=== PATIENT | male | born 1960 | race Caucasian/White ===

== ENCOUNTER → 2018-01-27 | Day surgery (SDC) | payer BC ==
[~2018-01-27] MED LIST: ATORVASTATIN CA10 MG PO; BUPIVACAINE 0.5%/EPI 30 ML SDV INJ ONE; CEFAZOLIN SOD 2 GM/D5W 50ML 50 ML IV ONE; CRESTOR20 MG PO; DEXAMETHASONE SOD PHOS INJ 4 MG/ML VIAL ONE; DIOVAN HCT 80-1 EACH; FENTANYL CITRATE/PF 100MCG/2 ML INJ ONE; IBUPROFEN200 MG PO; KETOROLAC TROMETHAMINE 30 MG/ML VIAL ONE; LIDOCAINE HCL 2% LOCAL INJ 5 ML SDV VIAL INJ ONE; METOPROLOL TART25 MG PO; MIDAZOLAM HCL 2 MG/2 ML VIAL ONE; ONDANSETRON HCL INJ 2 MG/ML VIAL ONE; PANTOPRAZOLE SO40 MG PO; PROPOFOL IV EMULSION 10 MG/ML 20 ML VIAL ONE; SEVOFLURANE INHAL SOLN 250 ML PEN BTL ONE; TYLENOL # 31 EA PO
--- NOTE | 2018-01-28 15:01 | Operative Report ---
DATE OF PROCEDURE: January 27, 2018 PREOPERATIVE DIAGNOSES 1. Right knee medial meniscus tear. 2. Right knee degenerative joint disease of the knee. POSTOPERATIVE DIAGNOSES 1. Right knee medial meniscus tear. 2. Right knee degenerative joint disease of the knee. OPERATIONS/PROCEDURES PERFORMED 1. The patient underwent a right knee examination under anesthesia. 2. Right knee arthroscopy. 3. Right knee partial medial meniscectomy. 4. Right knee chondroplasty of the patella, trochlea, medial femoral condyle, medial tibial plateau, lateral femoral condyle, and lateral tibial plateau. TAX PROCESSOR: None. ANESTHESIA: General endotracheal intubation anesthesia. IV FLUIDS: Per anesthesia record. BRIEF DESCRIPTION OF THE PATIENT'S OPERATIVE PROCEDURE: Mr. Alejandre was taken to the operating room and placed in the supine position on the operating table. Following induction general anesthesia, as well as endotracheal intubation, the patient's right lower extremity was examined under anesthesia. He was found to have a mild effusion within the knee joint. His ligaments were stable. The patient's right lower extremity was prepped and draped in the standard surgical fashion. A 2-portal technique was used to provide this patient arthroscopic evaluation of the knee joint. Examination of the suprapatellar pouch, medial and lateral gutters found no evidence of loose bodies. There was, however, evidence of chondromalacia of the patellar and trochlear surfaces. Scope was advanced in the medial compartment. Examination of the medial compartment demonstrated a torn medial meniscus. There was also chondromalacia of the articulating surfaces. A combination of biting forceps and motorized shaver were used to resect the torn portion of the meniscus. Chondroplasties of the medial femoral condyle and medial tibial plateau were performed at this time. Scope was advanced to the intercondylar notch. The anterior cruciate ligament was identified and found to be intact. Scope was advanced to the lateral compartment. Examination of the lateral compartment demonstrated no meniscal injury. There was chondromalacia of the articulating surfaces. Chondroplasties of the lateral femoral condyle and lateral tibial plateau were performed at this time. Scope was then placed in the suprapatellar pouch, and chondroplasty of patella and trochlea was performed. The knee was deflated of its sterile normal saline. Each of the portal sites were closed using 4-0 nylon suture. Portal sites as well as the knee itself was injected with 0.5% Marcaine with epinephrine. Sterile dressings were applied. The patient was then awakened and taken to the postanesthesia care in stable condition. Job#: [id number] RI
== END | disposition home or self-care (01) ==
LOC: OR 09:32
PROVIDERS: ATTEND Specialist
DX: S83.221A Peripheral tear of medial meniscus, current injury, right knee, initial encounter (principal); M17.11 Unilateral primary osteoarthritis, right knee; M22.41 Chondromalacia patellae, right knee; I10 Essential (primary) hypertension; E78.5 Hyperlipidemia, unspecified; G47.33 Obstructive sleep apnea (adult) (pediatric); X58.XXXA Exposure to other specified factors, initial encounter; Z01.810 Encounter for preprocedural cardiovascular examination; Z68.30 Body mass index [BMI] 30.0-30.9, adult; Z87.891 Personal history of nicotine dependence
CPT/HCPCS: 29881; 93005; J1100; J1885; J2001; J2250; J2405

== ENCOUNTER 2018-01-29 22:19 | Observation (INO) | payer BC ==
[~2018-01-29] VITALS: Ht 172.7 cm; Wt 86.2 kg
[~2018-01-29 22:19] MED LIST changes: -BUPIVACAINE 0.5%/EPI 30 ML SDV INJ ONE; -CEFAZOLIN SOD 2 GM/D5W 50ML 50 ML IV ONE; -CRESTOR20 MG PO; -DEXAMETHASONE SOD PHOS INJ 4 MG/ML VIAL ONE; -DIOVAN HCT 80-1 EACH; -FENTANYL CITRATE/PF 100MCG/2 ML INJ ONE; -KETOROLAC TROMETHAMINE 30 MG/ML VIAL ONE; -LIDOCAINE HCL 2% LOCAL INJ 5 ML SDV VIAL INJ ONE; -METOPROLOL TART25 MG PO; -MIDAZOLAM HCL 2 MG/2 ML VIAL ONE; -ONDANSETRON HCL INJ 2 MG/ML VIAL ONE; -PANTOPRAZOLE SO40 MG PO; -PROPOFOL IV EMULSION 10 MG/ML 20 ML VIAL ONE; -SEVOFLURANE INHAL SOLN 250 ML PEN BTL ONE; -TYLENOL # 31 EA PO
[2018-01-29] MEDS ORDERED: PANTOPRAZOLE 40 MG 10ML VIAL IV STA (22:25)
[2018-01-29] MEDS ORDERED: MORPHINE SULFATE 2 MG/ML SYR IV STA (22:25)
[2018-01-29] MEDS ORDERED: ONDANSETRON HCL INJ 2 MG/ML VIAL IV STA (22:25)
[2018-01-29] MEDS ORDERED: SODIUM CHLORIDE 0.9% 1000ML 1,000 ML IV STA (22:25)
[2018-01-29] MEDS ORDERED: NITROGLYCERIN 2% OINT 1 GM PKT TOP ONE (22:30)
[2018-01-29] MEDS ORDERED: ASPIRIN 81 MG CHEW TAB PO ONE (22:45)
[2018-01-29 22:48] LABS: BASOPHILS # (AUTO) 0.1 (0.0-0.1); BASOPHILS % 0.6 % (0.0-1.0); EOSINOPHILS # (AUTO) 0.2 (0.0-0.4); EOSINOPHILS % 1.7 % (0.0-6.0); HEMOGLOBIN 13.9 g/dL (14.0-18.0); LYMPHOCYTES # (AUTO) 3.3 (1.0-3.2); MEAN CORPUSCULAR HEMOGLOBIN 30.8 pg (28-32); MEAN CORPUSCULAR HGB CONC 34.8 g/dL (31-35); MEAN CORPUSCULAR VOLUME 88.5 fL (81-99); MONOCYTES # (AUTO) 1.1 (0.2-0.8); MONOCYTES % 9.8 % (4.4-11.3); NEUTROPHILS # (AUTO) 6.3 (2.1-6.9); NEUTROPHILS % 57.5 % (38.7-80.0); PLATELET COUNT 255 x10e3/uL (140-360); RED BLOOD COUNT 4.52 x10e6/uL (4.3-5.7)
[2018-01-29] MEDS ORDERED: CRESTOR20 MG PO (22:53)
[2018-01-29] MEDS ORDERED: TYLENOL # 31 EA PO (22:53)
[2018-01-29 22:56] LABS: INR 0.98; PARTIAL THROMBOPLASTIN TIME 24.6 seconds (23.8-35.5); PROTHROMBIN TIME 12.2 seconds (11.9-14.5)
[2018-01-29 23:07] LABS: ALANINE AMINOTRANSFERASE 30 IU/L (0-55); ALBUMIN/GLOBULIN RATIO 1.1 (0.8-2.0); ALKALINE PHOSPHATASE 60 IU/L (40-150); ANION GAP 14.7 mmol/L (8-16); BLOOD UREA NITROGEN 17 mg/dL (7-26); BUN/CREATININE RATIO 19 (6-25); CALCIUM 9.4 mg/dL (8.4-10.2); CARBON DIOXIDE 23 mmol/L (22-29); CHLORIDE 103 mmol/L (98-107); CREATINE KINASE 50 IU/L (30-200); CREATININE, SERUM 0.89 mg/dL (0.72-1.25); EST GLOMERULAR FILTRATION RATE > 60 ML/MIN (60-); GLUCOSE 107 mg/dL (74-118); LIPASE 32 U/L (8-78); MAGNESIUM 2.1 MG/DL (1.3-2.1); POTASSIUM 3.7 mmol/L (3.5-5.1); SODIUM 137 mmol/L (136-145)
[2018-01-29] MEDS ORDERED: SODIUM CHLORIDE 0.9% 50ML 50 ML ONE (23:22)
[2018-01-29] MEDS ORDERED: IOPAMIDOL 370 MG/ML 200 ML INFUS..BTL INJ ONE (23:22)
--- NOTE | 2018-01-29 23:26 | Diagnostic Imaging Report ---
ABDOMEN COMP INCL UPR or DECUB, CHEST 2 VIEWS Clinical history: Chest pain, shortness of breath Technique: 2 views of the chest, AP view abdomen upright and supine Comparison: None Findings: Abdomen: No dilated loops. Mild stool is seen throughout the colon. No free air. Chest: Unremarkable appearance of the heart, mediastinum, lungs and pleural spaces. Impression: No acute thoracic abnormality. Nonobstructive bowel gas pattern. Signed by: Dr Kim Oconnor MD on 01/29/2018 11:23 PM
[2018-01-29 23:34] LABS: BILIRUBIN,URINE NEGATIVE (NEGATIVE); CLARITY,URINE CLEAR (CLEAR); COLOR,URINE YELLOW (YELLOW); KETONES,URINE NEGATIVE (NEGATIVE); LEUKOCYTE ESTERASE ,URINE NEGATIVE (NEGATIVE); NITRITE,URINE NEGATIVE (NEGATIVE); PROTEIN,URINE DIPSTICK NEGATIVE (NEGATIVE); URINE UROBILINOGEN 0.2 mg/dL (0.2 - 1)
[2018-01-29 23:36] LABS: EPITHELIAL CELLS,URINE FEW /LPF; RBC,URINE 0-5 /HPF (0-5); WBC,URINE (MAN) 0-5 /HPF (0-5)
[2018-01-29] MEDS ORDERED: LABETALOL HCL 5 MG/ML 20ML VIAL IV STA (23:56)
[2018-01-30] VITALS (10 sets, daily range): BP systolic 131–198; BP diastolic 75–103
[2018-01-30] MEDS ORDERED: HYDRALAZINE HCL 20 MG/ML VIAL IV STA (00:05)
[2018-01-30] MEDS ORDERED: ENALAPRILAT IV INJ 1.25 MG/ML VIAL IV STA (00:15)
--- NOTE | 2018-01-30 00:15 | Diagnostic Imaging Report ---
EXAM: CT CHEST W DATE: 01/29/2018 11:13 PM INDICATION: Chest pain, concern for pulmonary embolism COMPARISON: None TECHNIQUE: Multidetector CT scanning of the chest was performed. Coronal and sagittal multiplanar reformations were obtained. IV Contrast: 100 ml Isovue 370/300 FINDINGS: LUNGS AND PLEURA: Mild bibasilar atelectasis. Nonspecific 8 x 4 x 5 mm right lower lobe nodule image 68 and 4-5 mm left lower lobe nodule on image 76. No consolidations or edema. No effusions or pneumothorax. HEART, MEDIASTINUM, VESSELS: No evidence of acute pulmonary artery embolism. Main pulmonary artery is normal in caliber, 2.5 cm. Normal heart size. No pericardial effusion. No adenopathy. UPPER ABDOMEN: Unremarkable. MUSCULOSKELETAL: No acute findings. IMPRESSION: 1. No acute pulmonary embolism. 2. Nonspecific pulmonary nodules, largest 3 mm. Recommend 6 month follow-up CT to document stability. Signed by: Dr Kim Oconnor MD on 01/30/2018 12:11 AM
[2018-01-30] MEDS: FAMOTIDINE 20 MG/2 ML VIAL IV SCH ×2 (01:23→13:35)
[2018-01-30] MEDS: METOPROLOL TARTRATE 25 MG TAB PO SCH ×3 (01:23→23:50)
[2018-01-30] MEDS: ONDANSETRON HCL INJ 2 MG/ML VIAL IV PRN ×2 (03:25→10:53)
[2018-01-30] MEDS: MORPHINE SULFATE 2 MG/ML SYR IV PRN ×2 (03:26→10:53)
[2018-01-30] MEDS: NITROGLYCERIN 2% OINT 1 GM PKT TOP SCH ×4 (06:00→23:35)
[2018-01-30 06:17] LABS: CREATINE KINASE 42 IU/L (30-200)
[2018-01-30] MEDS: ASPIRIN 81 MG ENTERIC COATED PO SCH (08:44)
[2018-01-30] MEDS ORDERED: MAGNESIUM HYDROXIDE 30 ML UDC PO ONE (13:30)
[2018-01-30] MEDS ORDERED: LISINOPRIL 10 MG TAB PO ONE (14:15)
[2018-01-30 14:25] LABS: CREATINE KINASE MB 0.5 ng/mL (0-5.0)
[2018-01-30] MEDS: HYDROCHLOROTHIAZIDE 25 MG TAB PO SCH (17:07)
[2018-01-30] MEDS: PANTOPRAZOLE SOD 40 MG TABEC PO SCH (17:07)
--- NOTE | 2018-01-30 18:47 | Consultation ---
DATE OF CONSULTATION: January 30, 2018 CARDIOLOGY CONSULTATION REASON FOR CONSULTATION: Chest pain. HISTORY OF PRESENT ILLNESS: This is a 57-year-old man with a history of hyperlipidemia, who presented to the emergency department yesterday evening with severe onset of chest pain. The patient states that he has been fairly sedentary over the last couple of days after having arthroscopic knee surgery. The patient states that he had dinner at [employer] with his family, and then yesterday evening while watching TV developed severe substernal chest pain. The patient reports the pain was a pressure and tightness sensation, worse with deep inspiration. No relief with rest of medications at home associated with some shortness of breath. Currently, he is feeling better. Initially, reported 6/10 chest pain worse with deep inspiration at the beginning of my interview. At the end of the interview, he was feeling well and denied any pain. The patient does report having anxiety at home in addition to indigestion. Upon arrival here to the emergency department, the patient was found to be profoundly hypertensive with a blood pressure of 238/134, and has had 2 sets of negative cardiac enzymes. He has no prior past cardiovascular history. He has been compliant with his statin medication. He has no prior cardiac testing. REVIEW OF SYSTEMS: A 12-point review of systems was conducted and is negative, otherwise above in the HPI. PAST MEDICAL HISTORY: Hyperlipidemia. PAST SURGICAL HISTORY: Arthroscopic knee surgery. FAMILY HISTORY: No premature CAD or sudden cardiac . SOCIAL HISTORY: No illicit drug use, alcohol use. Reports occasional cigar use. ALLERGIES: NO KNOWN DRUG ALLERGIES. MEDICATIONS: Crestor. PHYSICAL EXAMINATION VITALS: Temperature is 98 degrees Fahrenheit, heart rate 73, respirations 16, blood pressure 168/97, and is 98% on room air. GENERAL: He is a well-appearing, well-developed man lying comfortably in bed in mild distress. HEENT: Head is normocephalic and atraumatic. Eyes: Extraocular muscles are intact. Ears and nose are clear. NECK: Negative JVD. No bruits. CARDIOVASCULAR: Regular rate and rhythm. No significant murmurs were auscultated. Potential rub. LUNGS: Clear to auscultation bilaterally. No wheezing or rales. ABDOMEN: Soft, nontender and nondistended. EXTREMITIES: No clubbing, cyanosis or edema. VASCULAR: Two plus pulses. SKIN: Warm, dry and intact. NEUROLOGIC: No focal deficits. Cranial nerves grossly intact. PSYCHIATRIC: Normal mood and affect. LABORATORY DATA: Shows a white blood cell count of 11, hemoglobin 13.9 and platelets 255,000. Sodium 137, potassium 3.7, creatinine 0.89. Magnesium 2.1. Liver function tests are normal. Cardiac enzymes are normal times [address] of the chest shows no acute pulmonary embolism and nonspecific pulmonary nodule. Chest x-ray shows no acute cardiopulmonary abnormality. A 12-lead electrocardiogram shows normal sinus rhythm. IMPRESSION AND RECOMMENDATIONS 1. Precordial pain: The patient has atypical symptoms and has ruled out for acute coronary syndrome with 3 sets of negative cardiac enzymes. The 12-lead electrocardiogram shows no S/T changes. Differential diagnosis currently includes pericarditis, musculoskeletal pain, dyspepsia, or anxiety. The patient had profoundly elevated blood pressures, and this likely is exacerbating his chest pain. The patient has been initiated on lisinopril and metoprolol, and can titrate these for better blood pressure control. Will start aspirin medication and continue statin. Would like to monitor the patient clinically overnight as he is having ongoing chest discomfort. He has continued pain despite adequate blood pressure control. Likely will need further risk stratification with stress testing. A 2-D echocardiogram has been ordered, and I will review this once it has been completed. 2. Hypertensive urgency: This is likely exacerbating his chest pain. The patient has been initiated on lisinopril and metoprolol, and will titrate these medications. 3. Hyperlipidemia: Check lipid panel and continue statin medications. 4. Anxiety: The patient self reported anxiety at home. This likely is playing a role in his symptoms as well. 5. Chronic dyspepsia: Will provide proton pump inhibitor and a gastrointestinal cocktail. 6. Obesity: Discussed diet and exercise for weight loss. Thank you, Dr. Crabtree, for the consultation. I will be following along with you. Job#: [id number] NURA
[2018-01-31] MEDS: ONDANSETRON HCL INJ 2 MG/ML VIAL IV PRN (00:49)
[2018-01-31] MEDS: MORPHINE SULFATE 2 MG/ML SYR IV PRN (00:53)
[2018-01-31] MEDS: FAMOTIDINE 20 MG/2 ML VIAL IV SCH ×2 (01:32→13:00)
[2018-01-31 04:20] VITALS: BP 115/62
[2018-01-31 05:05] LABS: CHOL/HDL RATIO 2.5 (3.9-4.7)
[2018-01-31] MEDS: NITROGLYCERIN 2% OINT 1 GM PKT TOP SCH ×2 (05:54→12:00)
[2018-01-31 07:52] VITALS: BP 116/62
[2018-01-31] MEDS ORDERED: VALSARTAN 80 MG TAB PO SCH (09:00)
[2018-01-31] MEDS ORDERED: LISINOPRIL 10 MG TAB PO SCH (09:00)
[2018-01-31] MEDS ORDERED: REGADENOSON 0.4 MG/5 ML SYR IV ONE (10:55)
[2018-01-31] MEDS: PANTOPRAZOLE SOD 40 MG TABEC PO SCH (12:00)
--- NOTE | 2018-01-31 15:54 | Cardiology Report ---
DATE OF STUDY: January 31, 2018 NUCLEAR STRESS TEST STUDY QUALITY: Fair. REASON FOR STUDY: Precordial pain. STRESS SUMMARY: The patient underwent stress testing with regadenoson under the usual protocol. Blood pressure increased from 138/67 at baseline to 155/71 at the end of stress. His heart rate at baseline was 77 beats per minute, and chon to 112 beats per minute representing 68% of the age predicted heart rate. The patient exhibited occasional chest pressure throughout the infusion protocol. ELECTROCARDIOGRAPHIC STRESS SUMMARY: Baseline 12-lead electrocardiogram showed normal sinus rhythm with subtle S/T elevations throughout the precordium and limb leads. There were no S/T deviations of significance throughout this stress summary. The patient exhibited occasional premature atrial complexes during stress and recovery. MYOCARDIAL PERFUSION IMAGING: The patient received technitium-99 M and sestamibi at rest and stress, and myocardial perfusion images were obtained. The images reveal a small mild predominately fixed inferior perfusion defect. The gaited images revealed a left ventricular ejection fraction of 67%. CONCLUSIONS 1. Inconclusive electrocardiographic Lexiscan stress test due to resting echocardiogram changes. 2. Normal hemodynamic Lexiscan stress test. 3. Normal myocardial perfusion imaging showing small mild inferior attenuation artifact. However, cannot rule out nontransmural scar. 4. Normal left ventricular function with an estimated ejection fraction of 67%. Job#: [id number] NURA
[2018-01-31] MEDS: HYDROCHLOROTHIAZIDE 25 MG TAB PO SCH (16:00)
[2018-01-31] MEDS: METOPROLOL TARTRATE 25 MG TAB PO SCH (16:00)
[2018-01-31] MEDS: ASPIRIN 81 MG ENTERIC COATED PO SCH (16:00)
[2018-01-31] MEDS ORDERED: DIOVAN HCT 80-1 EACH (16:02)
[2018-01-31] MEDS ORDERED: METOPROLOL TART25 MG PO (16:04)
[2018-01-31] MEDS ORDERED: PANTOPRAZOLE SO40 MG PO (16:05)
[2018-01-31 16:10] VITALS: BP 138/69
== END 2018-01-31 17:42 | disposition home or self-care (01) ==
LOC: ER 22:19 → ERHOLD 01-30 01:09 → IMCU 01-30 01:27
DX: R07.2 Precordial pain (principal); I16.0 Hypertensive urgency; E78.5 Hyperlipidemia, unspecified; F41.9 Anxiety disorder, unspecified; R10.13 Epigastric pain; E66.9 Obesity, unspecified; Z71.3 Dietary counseling and surveillance; K58.9 Irritable bowel syndrome, unspecified; Z68.28 Body mass index [BMI] 28.0-28.9, adult
CPT/HCPCS: 36415 ×3; 71046; 71260; 78452; 80053; 80061; 81001; 82150; 82550 ×2; 82553 ×2; 83690; 83735; 83880; 84484 ×2; 85025; 85379; 85610; 85730; 87086; 93005; 93017; 93306; 93971; 99284; A9502; G0378 ×2; J2270 ×3; J2405 ×3; J7030; Q9967; S0164 ×2

== ENCOUNTER 2018-02-15 15:50 | Outpatient (RCR) | payer BC ==
[~2018-02-15 15:50] MED LIST changes: +CRESTOR20 MG PO; +DIOVAN HCT 80-1 EACH; +METOPROLOL TART25 MG PO; +PANTOPRAZOLE SO40 MG PO; +TYLENOL # 31 EA PO
== END 2018-02-16 ==
LOC: PT 15:50
PROVIDERS: ATTEND Specialist
DX: M25.561 Pain in right knee (principal); M25.661 Stiffness of right knee, not elsewhere classified; M62.81 Muscle weakness (generalized); R26.2 Difficulty in walking, not elsewhere classified

== ENCOUNTER 2018-03-16 17:00 | Outpatient (RCR) | payer BC | END 2018-03-19 | LOC: PT 17:00 | PROVIDERS: ATTEND Specialist | DX: M25.561 Pain in right knee (principal); M25.661 Stiffness of right knee, not elsewhere classified; R26.2 Difficulty in walking, not elsewhere classified; M62.81 Muscle weakness (generalized) ==

== ENCOUNTER → 2018-07-07 | Day surgery (SDC) | payer BC ==
[~2018-07-07] MED LIST changes: +BUPIVACAINE 0.5%/EPI 30 ML SDV INJ ONE; +CEFAZOLIN SOD 2 GM/D5W 50ML 50 ML IV ONE; +DEXAMETHASONE SOD PHOS INJ 4 MG/ML VIAL ONE; +FENTANYL CITRATE/PF 100MCG/2 ML INJ ONE; +KETOROLAC TROMETHAMINE 30 MG/ML VIAL ONE; +LIDOCAINE HCL 2% LOCAL INJ 5 ML SDV VIAL INJ ONE; +MIDAZOLAM HCL 2 MG/2 ML VIAL ONE; +ONDANSETRON HCL INJ 2 MG/ML VIAL ONE; +PROPOFOL IV EMULSION 10 MG/ML 20 ML VIAL ONE; +ROCURONIUM BROMIDE 10 MG/ML 5ML VIAL ONE; +SEVOFLURANE INHAL SOLN 250 ML PEN BTL ONE
--- OUTSIDE RECORDS SUMMARY | 2018-07-07 09:34 | XMS REPORT ---
Author Author [facility] Address Unknown Phone Unavailable Care Team Providers Care Pencil Inspector Name Role Phone BETSY JACOBSEN Unavailable Unavailable Problems This patient has no known problems. Allergies, Adverse Reactions, Alerts This patient has no known allergies or adverse reactions. Medications This patient has no known medications. Results Test Description Test Time Test Comments Text Results Atomic Results Result Comments Stress Test - Treadmill ONLY 2018-01-31 15:17:00 [place] [id number] Patient Name : KEARA ANGUIANO V MR #: [id number] : 1960 Age/Sex: 57/M Adm Physician : BETSY JACOBSEN MD Admit Date : 01/30/18 Location : [facility] Room/Bed : [place] [address] REPORT: Cardiology Report DATE OF STUDY: January 31, 2018 NUCLEAR STRESS TEST STUDY QUALITY: Fair. REASON FOR STUDY: Precordial pain. STRESS SUMMARY: The patient underwent stress testing with regadenoson under the usual protocol. Blood pressure increased from 138/67 at baseline to 155/71 at the end of stress. His heart rate at baseline was 77 beats per minute, and chon to 112 beats per minute representing 68% of the age predicted heart rate. The patient exhibited occasional chest pressure throughout the infusion protocol. ELECTROCARDIOGRAPHIC STRESS SUMMARY: Baseline 12-lead electrocardiogram showed normal sinus rhythm with subtle S/T elevations throughout the precordium and limb leads. There were no S/T deviations of significance throughout this stress summary. The patient exhibited occasional premature atrial complexes during stress and recovery. MYOCARDIAL PERFUSION IM AGING: The patient received technitium-99 M and sestamibi at rest and stress, and myocardial perfusion images were obtained. The images reveal a small mild predominately fixed inferior perfusion defect. The gaited images revealed a left ventricular ejection fraction of 67%. CONCLUSIONS 1. Inconclusive electrocardiographic Lexiscan stress test due to resting echocardiogram changes. 2. Normal hemodynamic Lexiscan stress test. 3. Normal myocardial perfusion imaging showing small mild inferior attenuation artifact. However, cannot rule out nontransmural scar. 4. Normal left ventricular function with an estimated ejection fraction of 67%. Job#: [id number] RI Signature Date Dictated By: KIRBY SERVIN DO Transcribed By: EDS on 01/31/18 <Electronically signed by KIRBY SERVIN DO><<Signature on File>>02/16/18 1146 COPY TO: CT CHEST W 2018-01-30 00:03:00 [place] [id number] Patient Name: KEARA ANGUIANO V MR #: [id number] : 1960 Age/Sex: 57/M Req #: [id number] Adm Physician: Ordered by: ANGELY STRINGER MD Report #: [id number] Location: ER Room/Bed: Procedure: [id number] CT/CT CHEST W Exam Date: 01/29/18 Exam Time: 2325 REPORT STATUS: Signed EXAM: CT CHEST W DATE: 01/29/2018 11:13 PM INDICATION: Chest pain, concern for pulmonary embolism COMPARISON: None TECHNIQUE: Multidetector CT scanning of the chest was performed. Coronal and sagittal multiplanar reformations were obtained. IV Contrast: 100 ml Isovue 370/300 FINDINGS: LUNGS AND PLEURA: Mild bibasilar atelectasis. Nonspecific 8 x 4 x 5 mm right lower lobe nodule image 68 and 4-5 mm left lower lobe nodule on image 76. No consolidations or edema. No effusions or pneumothorax. HEART, MEDIASTINUM, VESSELS: No evidence of acute pulmonary artery embolism. Main pulmonary artery is normal in caliber, 2.5 cm. Normal heart size. No pericardial effusion. No adenopathy. UPPER ABDOMEN: Unremarkable. MUSCULOSKELETAL: No acute findings. IMPRESSION: 1. No acute pulmonary embolism. 2. Nonspecific pulmonary nodules, largest 3 mm. Recommend 6 month follow-up CT to document stability. Signed by: Dr Ramon Oconnor MD on 01/30/2018 12:11 AM Dictated By: RAMON OCONNOR MD Transcribed By: ALBERTINA on 01/30/1810 COPY TO: ANGELY STRINGER MD CHEST 2 VIEWS 2018-01-29 23:21:00 [place] [address] Patient Name: KEARA ANGUIANO V MR #: [id number] : 1960 Age/Sex: 57/M Req #: [id number] Adm Physician: Ordered by: ANGELY STRINGER MD Report #: [id number] Location: ER Room/Bed: Procedure: [id number] DX/CHEST 2 VIEWS Exam Date: 01/29/18 Exam Time: 2310 REPORT STATUS: Signed ABDOMEN COMP INCL UPR or DECUB, CHEST 2 VIEWS Clinical history: Chest pain, shortness of breath Technique: 2 views of the chest, AP view abdomen upright and supine Comparison: None Findings: Abdomen: No dilated loops. Mild stool is seen throughout the colon. No free air. Chest: Unremarkable appearance of the heart, mediastinum, lungs and pleural spaces. Impression: No acute thoracic abnormality. Nonobstructive bowel gas pattern. Signed by: Dr Ramon Oconnor MD on 01/29/2018 11:23 PM Dictated By: RAMON OCONNOR MD 22 Transcribed By: ALBERTINA on 01/29/182322 COPY TO: ANGELY STRINGER MD ABDOMEN COMP INCL UPR or DECUB 2018-01-29 23:21:00 [place] [address] Patient Name: KEARA ANGUIANO V MR #: [id number] : 1960 Age/Sex: 57/M Req #: [id number] Adm Physician: Ordered by: ANGELY STRINGER MD Report #: [id number] Location: ER Room/Bed: Procedure: [id number] DX/ABDOMEN COMP INCL UPR or DECUB Exam Date: 01/29/18 Exam Time: 2310 REPORT STATUS: Signed ABDOMEN COMP INCL UPR or DECUB, CHEST 2 VIEWS Clinical history: Chest pain, shortness of breath Technique: 2 views of the chest, AP view abdomen upright and supine Comparison: None Findings: Abdomen: No dilated loops. Mild stool is seen throughout the colon. No free air. Chest: Unremarkable appearance of the heart, mediastinum, lungs and pleural spaces. Impression: No acute thoracic abnormality. Nonobstructive bowel gas pattern. Signed by: Dr Ramon Oconnor MD on 01/29/2018 11:23 PM Dictated By: RAMON OCONNOR MD 22 Transcribed By: ALBERTINA on 01/29/182322 COPY TO: ANGELY STRINGER MD
[2018-07-07 13:30] VITALS: BP 135/81
--- NOTE | 2018-07-08 13:24 | Operative Report ---
DATE OF PROCEDURE: July 07, 2018 PREOPERATIVE DIAGNOSES 1. Left knee medial meniscus tear. 2. Left knee degenerative joint disease of the knee. POSTOPERATIVE DIAGNOSES 1. Left knee medial meniscus tear. 2. Left knee degenerative joint disease of the knee. 3. Left knee symptomatic medial shelf plica. OPERATIONS/PROCEDURES PERFORMED 1. The patient underwent a left knee examination under anesthesia. 2. Left knee arthroscopy. 3. Left knee partial meniscectomy. 4. Left knee chondroplasty of the patella, the trochlea, the medial femoral condyle the medial tibial plateau, lateral femoral condyle, lateral tibial plateau, as well as resection of a medial shelf plica. VETERINARY MEDICAL OFFICER: Brianna Albrecht ANESTHESIA: General endotracheal intubation anesthesia. IV FLUIDS: Per the anesthesia record. BRIEF DESCRIPTION OF THE PATIENT'S OPERATIVE PROCEDURE: Mr. Alejandre was taken to the operating room and placed in the supine position on the operating table. Following induction of general anesthesia, as well as endotracheal intubation, the patient's left lower extremity was examined under anesthesia. He was found have a mild effusion within the joint, but otherwise ligamentously stable knee. The patient's lower extremity was prepped and draped in the standard surgical fashion. A 2-portal technique was used to provide this patient arthroscopic evaluation of the knee joint. Examination of the suprapatellar pouch, medial and lateral gutters found no evidence of loose bodies. There was, however, evidence of chondromalacia of the patellar and trochlear surfaces. The scope was advanced to the medial compartment. The patient was found to have a torn and macerated medial meniscus. There was also chondromalacia of the articulating surfaces. A combination of biting forceps and motorized shaver were used to resect the torn portion of the meniscus. Chondroplasties of the medial femoral condyle and medial tibial plateau were performed at this time. Scope was advanced into the intercondylar notch, and the anterior cruciate ligament was identified and found to be intact. Scope was advanced in the lateral compartment, and chondromalacia of the articulating surfaces were encountered. A chondroplasty of the lateral tibial plateau and lateral femoral condyle were undertaken. The scope was then advanced to the suprapatellar pouch, and chondroplasties of the patella and trochlea were performed. The medial shelf plica was also resected at this time. The knee was deflated of its sterile normal saline. Each of the portal sites were closed using 4-0 nylon suture. The portal sites as well as the knee itself were injected with 0.5% Marcaine with epinephrine. Sterile dressings were applied. The patient was awakened and taken to the postanesthesia care in stable condition. Job#: [id number] RI
== END | disposition home or self-care (01) ==
LOC: OR 09:32
PROVIDERS: ATTEND Specialist
DX: S83.222A Peripheral tear of medial meniscus, current injury, left knee, initial encounter (principal); M17.12 Unilateral primary osteoarthritis, left knee; M67.52 Plica syndrome, left knee; M22.42 Chondromalacia patellae, left knee; G47.33 Obstructive sleep apnea (adult) (pediatric); R07.9 Chest pain, unspecified; I10 Essential (primary) hypertension; E78.5 Hyperlipidemia, unspecified; R00.1 Bradycardia, unspecified; X58.XXXA Exposure to other specified factors, initial encounter; Y93.53 Activity, golf; Y99.8 Other external cause status; Z01.810 Encounter for preprocedural cardiovascular examination; Z68.30 Body mass index [BMI] 30.0-30.9, adult; Z87.891 Personal history of nicotine dependence
CPT/HCPCS: 29881; 93005; J0690; J1100; J1885; J2001; J2250; J2405; J2704